=== PATIENT | male | born 1980 | race Two or more races ===

== ENCOUNTER 2024-07-21 12:30 | Emergency (ER) | payer OTHER, MEDICAID ==
[~2024-07-21] VITALS: Ht 167.6 cm; Wt 73.4 kg
--- NOTE | 2024-07-21 12:36 | ECG ---
[facility] Test Date: 2024-07-21 Test Time: 12:34:36 Pat Name: GASPER PEÑA Department: ER Room: Gender: M Car Body Mechanic: GP : 1980 Requested By: ANNE SALCIDO Order Number: [id number] Reading MD: Matt Boyce Measurements Intervals [place] Rate: 85 P: 39 PA: 140 QRS: 132 QRSD: 108 T: 24 QT: 361 QTc: 430 Interpretive Statements Sinus rhythm Left posterior fascicular block Baseline wander in lead(s) II,III,aVL,aVF Electronically Signed On 07-22-2024 14:58:50 PDT by Matt Boyce Please click the below link to view image of tracing.
--- NOTE | 2024-07-21 12:41 | ED.PDOC ---
History of Present Illness HPI Comments 43 year old male presents to the ED with a chief complaint of anxiety onset today (07/21/24) about 1 hour ago. Patient states he was on a phone call, was very upset, shortly after began experiencing anxiety, felt his heart racing. PMHx anxiety. Denies nausea, vomiting, diarrhea, abdominal pain, chest pain,he adache, dizziness, fevers. No other symptoms or modifying factors present at this time. Time Seen by MD: 12:36 Reviewed Notes: Medications, Allergies Allergies: Coded Allergies: NO KNOWN ALLERGIES (Unverified , 07/21/24) Information Source: Patient Mode of Arrival: Ambulatory Severity: Moderate Timing: Hours Duration: Since onset Prehospital treatment: None Past Medical History PAST MEDICAL HISTORY: Anxiety Surgical History: Denies all surgeries Family History Family History: Reviewed,noncontributory to illness, No family hx of Cancer, No family hx of DM, No family hx of Heart stewart, No family hx of HTN, No family hx ofKidney stewart, No family hx of Liver stewart, No family hx of Lung stewart, No family hx of Stroke Social History Smoker: Non-Smoker Alcohol: Denies ETOH Use Drugs: Denies Drug Use Lives In: Home Constitutional: denies: chills, diaphoresis, fatigue, fever, malaise, sweats, weakness, others EENTM: denies: blurred vision, double vision, ear bleeding, ear discharge, ear drainage, ear pain, ear ringing, eye pain, eye redness, hearing loss, mouth pain, mouth swelling, nasal discharge, nose bleeding, nose congestion, nose pain, photophobia, tearing, throat pain, throat swelling, voice changes, others Respiratory: denies: cough, hemoptysis, orthopnea, SOB at rest, shortness of breath, SOB with excertion, stridor, wheezing, others Cardiovascular: denies: chest pain, dizzy spells, diaphoresis, Dyspnea on exertion, edema, irregular heart beat, left arm pain, lightheadedness, palpitations, PND, syncope, others Gastrointestinal: denies: abdomen distended, abdominal pain, blood streaked bowels, constipated, diarrhea, dysphagia, difficulty swallowing, hematemesis, melena, nausea, poor appetite, poor fluid intake, rectal bleeding, rectal pain, vomiting, others Genitourinary: denies: burning, dysuria, flank pain, frequency, hematuria, incontinence, penile discharge, penile sore, pain, testicle pain, testicle swelling, urgency, others Neurological: denies: dizziness, fainting, headache, left sided numbness, left sided weakness, numbness, paresthesia, pre-existing deficit, right sided numbness, right sided weakness, seizure, speech problems, tingling, tremors, weakness, others Musculoskeletal: denies: back pain, gout, joint pain, joint swelling, muscle pain, muscle stiffness, neck pain, others Integumetry: denies: bruises, change in color, change in hair/nails, dryness, laceration, lesions, lumps, rash, wounds, others Allergic/Immunocompromised: denies: Difficulty Healing, Frequent Infections, Hives, Itching, others Hematologic/Lymphatic: denies: anemia, blood clots, easy bleeding, easy bruising, swollen glands, others Endocrine: denies: excessive hunger, excessive sweating, excessive thirst, excessive urination, flushing, intolerance to cold, intolerance to heat, unexplained weight gain, unexplained weight loss, others Psychiatric: reports: anxiety; denies: bipolar disorder, depression, hopeless, panic disorder, schizophrenia, sleepless, suicidal, others All Other Systems: Reviewed and Negative Physical Exam General Appearance: Moderate Distress, Normal HEENT: Normal ENT Inspection, Pharynx Normal, TMs Normal Neck: Full Range of Motion, Non-Tender, Normal, Normal Inspection Respiratory: Chest Non-Tender, Lungs Clear, No Accessory Muscle Use, No Respiratory Distress, Normal Breath Sounds Cardiovascular: No Edema, No JVD, No Murmur, No Gallop, Normal Peripheral Pulses, Regular Rate/Rhythm Breast Exam: Deferred Gastrointestinal: No Organomegaly, Non Tender, No Pulsatile Mass, Normal Bowel Sounds, Soft Genitalia: Deferred Pelvic: Deferred Rectal: Deferred Extremities: No calf tenderness, Normal capillary refill, Normal inspection, Normal range of motion, Non-tender, No pedal edema Musculoskeletal : Apperance: Normal Neurologic: Alert, 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 Was a procedure done?: No EKG EKG : Pulse Rate (adult): 77 Cardiac Rhythm: NSR Differential Dx Considerations may include: Anxiety X-Ray, Labs, Meds, VS Vital Signs Date Time Temp Pulse Resp B/P (MAP) Pulse Ox O2 Delivery O2 Flow Rate FiO2 07/21/24 12:34 85 07/21/24 12:32 97.3 98 22 153/78 (103) 97 97.3 Lab Test 07/21/24 13:04 Range/Units Troponin I High Sensitivity Pending Current Medications Medications (Trade) Dose Ordered Sig/Roopa Route Start Time Stop Time Status Last Admin Lorazepam (Ativan Tablet) 2 mg ONCE ONCE PO 07/21/24 12:45 07/21/24 12:46 DC 07/21/24 13:04 Patient alert. Complaining of heart racing. Heart rate within normal limits. Vitals stable. Answering questions. He is anxious. History of anxiety. Was given Ativan. EKG reviewed does not show any acute changes. Explained to the patient. Was told to follow up with his primary care physician. Was told to come back if there is any problem. Time of 1ST Reevaluation: 13:06 Reevaluation 1ST: Unchanged Time of 2ND Reevaluation: 13:38 Reevaluation 2ND: Improved Patient Education/Counseling: Diagnosis, Treatment, Prognosis Family Education/Counseling: No Family Present Departure 1 Departure Time of Disposition: 13:39 Impression: Primary Impression: Anxiety Disposition: 01 HOME / SELF CARE / HOMELESS Condition: Good Discharged With: Self Critical Care Note Critical Care Time?: No Stability Stability form required: No Heart Score Heart Score: Heart Score Response (Comments) Value History Slightly Suspicious 0 EKG Normal 0 Age <45 0 Risk Factors No known risk factors 0 Troponin Normal limit 0 Total 0 I personally scribed for ANNE SALCIDO MD ([email or web address]) on 07/21/24 at 12:41. Electronically submitted by Irene Medina ([email or web address]). ANNE SALCIDO MD Jul 21, 2024 12:41
[2024-07-21] MEDS: LORazepam 0.5 MG TAB PO ONE (13:04)
[2024-07-21 14:38] VITALS: BP 136/82; PULSE 74; RESP 17; TEMP 98.8; O2SAT 96
== END 2024-07-21 15:15 | disposition home or self-care (01) ==
LOC: ER 12:38
DX: F41.9 Anxiety disorder, unspecified (principal); R00.0 Tachycardia, unspecified
CPT/HCPCS: 36415; 84484; 93005

== ENCOUNTER 2024-10-24 05:19 | Inpatient (IN) | payer OTHER, MEDICAID ==
[~2024-10-24] VITALS: Ht 167.6 cm; Wt 74.5 kg
--- NOTE | 2024-10-24 06:33 | ED.PDOC ---
History of Present Illness HPI Comments 44-year-old male BIBA with prior medical history of anxiety, slightly diagnosed with a renal stones two weeks were given and a chief complaint left flank pain. 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 The left-sided flank pain has been intermittent for two days and has worsened with symptoms of hematuria, urinary frequency, and N/V. Denies chills, fever, /D, SOB, CP. No other associated symptoms, modifiers, recent injuries or sick contacts present at this time. Chief Complaint: Flank Pain Time Seen by MD: 06:15 Primary Care Provider: [place] Reviewed Notes: Nurses Notes, Medications, Allergies Allergies: Coded Allergies: NO KNOWN ALLERGIES (Unverified , 07/21/24) Information Source: Patient Mode of Arrival: EMS Severity: Moderate Duration: Since onset Prehospital treatment: None Past Medical History PAST MEDICAL HISTORY: Anxiety Past Medical History (Other): Recently diagnosed with renal stones Surgical History: Denies all surgeries Family History Family History: Reviewed,noncontributory to illness, Unknown Social History Smoker: Non-Smoker Alcohol: Denies ETOH Use Drugs: Denies Drug Use Lives In: Home Constitutional: denies: chills, diaphoresis, fatigue, fever, malaise, sweats, weakness, others EENTM: denies: blurred vision, double vision, ear bleeding, ear discharge, ear drainage, ear pain, ear ringing, eye pain, eye redness, hearing loss, mouth pain, mouth swelling, nasal discharge, nose bleeding, nose congestion, nose pain, photophobia, tearing, throat pain, throat swelling, voice changes, others Respiratory: denies: cough, hemoptysis, orthopnea, SOB at rest, shortness of breath, SOB with excertion, stridor, wheezing, others Cardiovascular: denies: chest pain, dizzy spells, diaphoresis, Dyspnea on exertion, edema, irregular heart beat, left arm pain, lightheadedness, palpitations, PND, syncope, others Gastrointestinal: reports: nausea, vomiting; denies: abdomen distended, abdominal pain, blood streaked bowels, constipated, diarrhea, dysphagia, difficu lty swallowing, hematemesis, melena, poor appetite, poor fluid intake, rectal bleeding, rectal pain, others Genitourinary: reports: flank pain, frequency, hematuria; denies: burning, dysuria, incontinence, penile discharge, penile sore, pain, testicle pain, testicle swelling, urgency, others Neurological: denies: dizziness, fainting, headache, left sided numbness, left sided weakness, numbness, paresthesia, pre-existing deficit, right sided numbness, right sided weakness, seizure, speech problems, tingling, tremors, weakness, others Musculoskeletal: denies: back pain, gout, joint pain, joint swelling, muscle pain, muscle stiffness, neck pain, others Integumetry: denies: bruises, change in color, change in hair/nails, dryness, laceration, lesions, lumps, rash, wounds, others Allergic/Immunocompromised: denies: Difficulty Healing, Frequent Infections, Hives, Itching, others Hematologic/Lymphatic: denies: anemia, blood clots, easy bleeding, easy bruising, swollen glands, others Endocrine: denies: excessive hunger, excessive sweating, excessive thirst, excessive urination, flushing, intolerance to cold, intolerance to heat, unexplained weight gain, unexplained weight loss, others Psychiatric: denies: anxiety, bipolar disorder, depression, hopeless, panic disorder, schizophrenia, sleepless, suicidal, others All Other Systems: Reviewed and Negative Physical Exam General Appearance: Moderate Distress, Normal HEENT: Normal ENT Inspection, Pharynx Normal, TMs Normal Neck: Full Range of Motion, Non-Tender, Normal, Normal Inspection Respiratory: Chest Non-Tender, Lungs Clear, No Accessory Muscle Use, No Respiratory Distress, Normal Breath Sounds Cardiovascular: No Edema, No JVD, No Murmur, No Gallop, Normal Peripheral Pulses, Regular Rate/Rhythm Breast Exam: Deferred Gastrointestinal: Diffuse, No Organomegaly, No Pulsatile Mass, Normal Bowel Sounds, Soft Genitalia: Deferred Pelvic: Deferred Rectal: Deferred Extremities: No calf tenderness, Normal capillary refill, Normal inspection, Normal range of motion, Non-tender, No pedal edema Musculoskeletal : Apperance: Normal Neurologic: Alert, 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 Was a procedure done?: No Differential Dx Considerations may include: Kidney stone Electrolyte imbalance X-Ray, Labs, Meds, VS Vital Signs Date Time Temp Pulse Resp B/P (MAP) Pulse Ox O2 Delivery O2 Flow Rate FiO2 10/24/24 08:40 98.3 66 18 153/91 (111) 99 98.3 10/24/24 08:40 66 18 99 Room Air 10/24/24 05:19 98.3 100 18 148/76 98 98.3 Current Medications Medications (Trade) Dose Ordered Sig/Roopa Route Start Time Stop Time Status Last Admin Ondansetron HCl (Zofran) 4 mg ONCE ONCE IV 10/24/24 06:45 10/24/24 06:46 DC 10/24/24 08:19 Sodium Chloride 1,000 ml @ 1,000 mls/hr Q1H ONCE IVB 10/24/24 06:45 10/24/24 07:44 DC 10/24/24 08:06 Ketorolac Tromethamine (Toradol Injection) 30 mg ONCE ONCE IV 10/24/24 06:45 10/24/24 06:46 DC 10/24/24 08:19 Ketorolac Tromethamine (Toradol Injection) 15 mg Q6HPRN PRN IV 10/24/24 10:00 10/29/24 09:59 10/24/24 13:03 [place] [address] Ph: [phone] DIAGNOSTIC IMAGING Diagnostic Imaging Report : [id number] Signed PATIENT: GASPER PEÑA ACCT: [id number] UNIT: [id number] : 1980 LOC: ER ROOM / BED: / AGE / SEX: 44 / M ADM STATUS: REG ER SERVICE 0 ORDERING PHYSICIAN: ANNE SALCIDO MD PROCEDURE(s): ABPL - CT AB PEL WO CON-NO ORAL OR IV REASON: stone ORDER NUMBER(s): [id number], ACCESSION NUMBER(s): [id number] CT CT AB PEL WO CON-NO ORAL OR IV INDICATION: stone EXAM DATE: 10/24/2024 06:30 AM COMPARISON: None RADIATION DOSE: CTDIvol: 5 mGy, DLP: 288 mGy*cm PROCEDURE: Helical CT images were obtained of the abdomen and pelvis without IV contrast Sagittal and coronal reconstructions are provided. ORAL CONTRAST: None. ADDITIONAL IMAGES / REFORMATS: None All CT scans at this medical facility are performed using dose modulation techniques as appropriate to a performed exam including the following: Automated exposure control was utilized; adjustment of the MA and/or KV according to patient size; and use of iterative reconstruction technique. FINDINGS: LUNG BASE: Normal. LIVER: Normal. GALLBLADDER AND BILIARY TREE: No calcified gallstones. Normal caliber wall. No intra- or extrahepatic biliary ductal dilation. PANCREAS: Normal. SPLEEN: Normal. BOWEL: Moderate colonic diverticulosis with mild descending colonic diverticulitis. Normal appendix. ADRENALS: Normal. KIDNEYS AND URETER: Mild left hydroureteronephrosis with a 4 mm distal left ureteral kidney stone. BLADDER: Normal. REPRODUCTIVE ORGANS: Normal. LYMPH NODES:No lymphadenopathy. PERITONEUM: No ascites or free air. No other fluid collection. VESSELS: Scattered atherosclerotic calcifications are noted. RETROPERITONEUM: Normal. ABDOMINAL WALL: Normal. BONES: Scattered osseous degenerative changes are noted. IMPRESSION: Mild left hydroureteronephrosis with a 4 mm distal left ureteral kidney stone. Moderate colonic diverticulosis with mild descending colonic diverticulitis. Normal appendix. ATED BY: AREN RODRIGUES MD DICTATED DATE/TIME: 10/24/24705 SIGNED BY: AREN RODRIGUES MD SIGNED DATE/TIME: 10/24/24705 CC: Patient alert. Complaining of flank pain. History of kidney stones. Vitals stable. Answering questions. Ambulating. Establish intravenous access. Was given fluids. Was given Toradol. Was given Zofran. Reviewed his previous visit. Explained to the patient. CT scan of the abdomen reviewed does show a kidney stone. Hydronephrosis. Continues to have pain. Time of 1ST Reevaluation: 06:45 Reevaluation 1ST: Unchanged Patient Education/Counseling: Diagnosis, Treatment, Prognosis Family Education/Counseling: No Family Present SEPSIS Sepsis Screen Date sepsis recognized/suspect: Oct 24, 2024 Time Sepsis recognized/suspect: 518 Recent Procedure: No On Antibiotic Therapy: No Respiratory Rate >20: No Heart Rate >90: No Temp<36 C (96.8 F) or >38.3 C: No SBP <90 or MAP <65 mmHG: No New Acute Mental Status Change: No Is the patient on CPAP, BIPAP,: No Physician Orders Urinalysis (10/24/24 06:31) Ct Ab Pel Wo Con-No Oral Or Iv (10/24/24 06:31) Ketorolac Injection (Toradol Injection) (10/24/24 10:00) Tamsulosin Hydrochloride (Flomax) (10/24/24 18:00) Vital Signs Date Time Temp Pulse Resp B/P (MAP) Pulse Ox O2 Delivery O2 Flow Rate FiO2 10/24/24 08:40 98.3 66 18 153/91 (111) 99 98.3 10/24/24 08:40 66 18 99 Room Air 10/24/24 05:19 98.3 100 18 148/76 98 98.3 Medications Medications Dose Ordered Sig/Roopa Route Start Time Stop Time Status Last Admin Dose Admin Ketorolac Tromethamine 15 mg Q6HPRN PRN IV 10/24/24 10:00 10/29/24 09:59 10/24/24 13:03 Ketorolac Tromethamine 30 mg ONCE ONCE IV 10/24/24 06:45 10/24/24 06:46 DC 10/24/24 08:19 Ondansetron HCl 4 mg ONCE ONCE IV 10/24/24 06:45 10/24/24 06:46 DC 10/24/24 08:19 Sodium Chloride 1,000 ml @ 1,000 mls/hr Q1H ONCE IVB 10/24/24 06:45 10/24/24 07:44 DC 10/24/24 08:06 Departure 1 Departure Time of Disposition: 06:40 Impression: Primary Impression: Hydronephrosis Qualified Codes: N13.2 - Hydronephrosis with renal and ureteral calculous obstruction Additional Impression: Kidney stone Disposition: ADMITTED INPATIENT Admit to: Med Surg Condition: Guarded Critical Care Note Critical Care Time?: No Stability Stability form required: No Heart Score Heart Score: Heart Score Response (Comments) Value History N/A 0 EKG N/A 0 Age N/A 0 Risk Factors N/A 0 Troponin N/A 0 Total 0 I personally scribed for ANNE SALCIDO MD ([email or web address]) on 10/24/24 at 06:33. Electronically submitted by Conner Zambrano ([email or web address]). I personally scribed for ANNE SALCIDO MD ([email or web address]) on 10/24/24 at 14:08. Electronically submitted by Ronen Andre ([email or web address]). ANNE SALCIDO MD Oct 24, 2024 06:33
--- NOTE | 2024-10-24 07:08 | DVH ---
CT CT AB PEL WO CON-NO ORAL OR IV INDICATION: stone EXAM DATE: 10/24/2024 06:30 AM COMPARISON: None RADIATION DOSE: CTDIvol: 5 mGy, DLP: 288 mGy*cm PROCEDURE: Helical CT images were obtained of the abdomen and pelvis without IV contrast Sagittal and coronal reconstructions are provided. ORAL CONTRAST: None. ADDITIONAL IMAGES / REFORMATS: None All C T scans at this medical facility are performed using dose modulation techniques as appropriate to a p erformed exam including the following: Automated exposure control was utilized; adjustment of the MA and/or KV according to patient size; and use of iterative reconstruction technique. FINDINGS: LUNG BASE: Normal. LIVER: Normal. GALLBLADDER AND BILIARY TREE: No calcified gallstones. Normal caliber wall. No intra- or extrahepatic biliary ductal dilation. PANCREAS: Normal. SPLEEN: Normal. BOWEL: Moderate colonic diverticulosis with mild descending colonic diverticulitis. Normal appendix. ADRENALS: Normal. KIDNEYS AND URETER: Mild left hydroureteronephrosis with a 4 mm distal left ureteral kidney stone. BLADDER: Normal. REPRODUCTIVE ORGANS: Normal. LYMPH NODES:No lymphadenopathy. PERITONEUM: No ascites or free air. No other fluid collection. VESSELS: Scattered atherosclerotic calcifications are noted. RETROPERITONEUM: Normal. ABDOMINAL WALL: Normal. BONES: Scattered osseous degenerative changes are noted. IMPRESSION: Mild left hydroureteronephrosis with a 4 mm distal left ureteral kidney stone. Moderate colonic diverticulosis with mild descending colonic diverticulitis. Normal appendix.
[2024-10-24] MEDS: SODIUM CHLORIDE 0.9% 1,000 ML IVB ONE (08:06)
[2024-10-24] MEDS: ONDANSETRON HCL 4 MG/2 ML VIAL IV ONE (08:19)
[2024-10-24] MEDS: KETOROLAC TROMETH 30 MG/ML 1ML VIAL IV ONE (08:19)
[2024-10-24] MEDS ORDERED: TAMSULOSIN HYDROCHLORIDE 0.4 MG CAP PO ONE (10:00)
[2024-10-24] MEDS ORDERED: HYDROcodone-ACET 5/325MG TAB PO PRN (10:15)
[2024-10-24] MEDS ORDERED: ACETAMINOPHEN 325 MG TAB PO PRN (10:15)
[2024-10-24 10:31] VITALS: PULSE 63; RESP 18; O2SAT 98
[2024-10-24 10:37] LABS: Hematocrit 43.3 % (41.0-53.0); Hemoglobin 15.0 g/dL (13.5-17.5); Mean Corpuscular Hemoglobin 31.9 pg (28.0-32.0); Mean Corpuscular Volume 92.0 fL (80.0-100.0); Nucleated Red Blood Cells % 0.0 %
[2024-10-24 10:48] LABS: Potassium 4.3 mmol/L (3.5-5.1); Sodium 144 mmol/L (136-145)
[2024-10-24 10:49] LABS: Anion Gap 11 (5-15); Calcium 9.3 mg/dL (8.7-10.4); Carbon Dioxide 25 mmol/L (20-31)
[2024-10-24 10:50] LABS: Chloride 108 mmol/L (98-107)
[2024-10-24 10:54] LABS: BUN/Creatinine Ratio 11.7 (10.0-20.0); Blood Urea Nitrogen 14 mg/dL (9-23); Glucose 97 mg/dL (74-106)
--- NOTE | 2024-10-24 11:52 | DVHHP2 ---
History of Present Illness Reason for Visit: Left flank pain due to left hydroureteral nephrosis History of Present Illness This is a 44-year-old male with history of anxiety brought in by ambulance with complaint of left flank pain associated with urinary frequency, hematuria, nausea and vomiting x2 days that progressively got worse today. Upon evaluation patient felt much relief after Toradol was given in the ED. he denies having experienced these pain in the past and due to this would like to be further evaluated and treated. The patient will be admitted under hospitalist care to the medical-surgical unit. The patient denies fever, chills, headache, dizziness, palpitation, chest pain, nausea, vomiting, diarrhea, constipation and other associated symptoms. The plan has been discussed with the patient in which all questions concerns have been addressed Psych: Anxiety Past Surgical History: None Family History: None Smoke: No ALCOHOL: none Drugs: None Lives: with Family Domestic Violence: Neg Review of Systems Gastrointestinal: Nausea, Vomiting, Abdominal Pain Genitourinary: Frequency, Other (Left flank pain) Allergies: Coded Allergies: NO KNOWN ALLERGIES (Unverified , 07/21/24) Medications Current Medications Medications Dose Ordered Sig/Roopa Route Start Time Stop Time Status Last Admin Dose Admin Ketorolac Tromethamine 15 mg Q6HPRN PRN IV 10/24/24 10:00 10/29/24 09:59 Tamsulosin HCl 0.4 mg QPM PO 10/24/24 18:00 Sodium Chloride 1,000 ml @ 120 mls/hr Q8H20M IV 10/24/24 10:15 Acetaminophen/ Hydrocodone Bitart 1 tab Q4HP PRN PO 10/24/24 10:15 Hold Ondansetron HCl 4 mg Q4HP PRN IV 10/24/24 10:15 Acetaminophen 650 mg Q6HP PRN PO 10/24/24 10:15 Exam Vital Signs Vital Signs Date Time Temp Pulse Resp B/P (MAP) Pulse Ox O2 Delivery O2 Flow Rate FiO2 10/24/24 10:38 97 Room Air* 0 21 10/24/24 10:31 63 18 10/24/24 10:26 98.2 136/86 (103) 98.2 General Appearance: Alert, Oriented X3, Cooperative, No acute distress HEENT: Atraumatic, PERRLA, Mucous membr. moist/pink Respiratory: Clear to auscultation, Normal air movement Cardiovascular: Regular rate, Normal S1, Normal S2, No murmurs Abdominal: Normal bowel sounds, Soft, No hepatospenomegaly, No masses Extremities: No clubbing, No cyanosis, No edema, Normal pulses, No tenderness/swelling Skin: No rashes, No breakdown Neuro: Normal gait, Normal speech, Strength at 5/5 X4 ext, Normal tone, Sensation intact, Cranial nerves 3-12 NL Psych/Mental Status: Mental status NL, Mood NL Labs/Xrays Labs Test 10/24/24 10:16 Range/Units White Blood Count 14.0 H 4.4-10.8 10^3/uL Red Blood Count 4.71 4.5-5.90 10^6/uL Hemoglobin 15.0 13.5-17.5 g/dL Hematocrit 43.3 41.0-53.0 % Mean Corpuscular Volume 92.0 80.0-100.0 fL Mean Corpuscular Hemoglobin 31.9 28.0-32.0 pg Mean Corpuscular Hemoglobin Concent 34.7 32.0-36.0 g/dL Red Cell Distribution Width 13.7 11.8-14.3 % Platelet Count 192 140-450 10^3/uL Mean Platelet Volume 8.4 6.9-10.8 fL Neutrophils (%) (Auto) 92.0 H 37.0-80.0 % Lymphocytes (%) (Auto) 5.1 L 10.0-50.0 % Monocytes (%) (Auto) 2.8 0.0-12.0 % Eosinophils (%) (Auto) 0.0 0.0-7.0 % Basophils (%) (Auto) 0.1 0.0-2.0 % Neutrophils # (Auto) 12.9 H 1.6-8.6 10 ^3/uL Lymphocytes # (Auto) 0.7 0.4-5.4 10 ^3/uL Monocytes # (Auto) 0.4 0-1.3 10 ^3/uL Eosinophils # (Auto) 0 0-0.8 10 ^3/uL Basophils # (Auto) 0 0-0.2 10 ^3/uL Nucleated Red Blood Cells 0.0 % Sodium Level 144 136-145 mmol/L Potassium Level 4.3 3.5-5.1 mmol/L Chloride Level 108 H 98-107 mmol/L Carbon Dioxide Level 25 20-31 mmol/L Anion Gap 11 5-15 Blood Urea Nitrogen 14 9-23 mg/dL Creatinine 1.20 0.700-1.30 mg/dL Glomerular Filtration Rate Calc 77 >90 mL/min BUN/Creatinine Ratio 11.7 10.0-20.0 Serum Glucose 97 74-106 mg/dL Calcium Level 9.3 8.7-10.4 mg/dL ORDERING PHYSICIAN: ANNE SALCIDO MD PROCEDURE(s): ABPL - CT AB PEL WO CON-NO ORAL OR IV REASON: stone ORDER NUMBER(s): [id number], ACCESSION NUMBER(s): [id number] CT CT AB PEL WO CON-NO ORAL OR IV INDICATION: stone EXAM DATE: 10/24/2024 06:30 AM COMPARISON: None RADIATION DOSE: CTDIvol: 5 mGy, DLP: 288 mGy*cm PROCEDURE: Helical CT images were obtained of the abdomen and pelvis without IV contrast Sagittal and coronal reconstructions are provided. ORAL CONTRAST: None. ADDITIONAL IMAGES / REFORMATS: None All CT scans at this medical facility are performed using dose modulation techniques as appropriate to a performed exam including the following: Automated exposure control was utilized; adjustment of the MA and/or KV according to patient size; and use of iterative reconstruction technique. FINDINGS: LUNG BASE: Normal. LIVER: Normal. GALLBLADDER AND BILIARY TREE: No calcified gallstones. Normal caliber wall. No intra- or extrahepatic biliary ductal dilation. PANCREAS: Normal. SPLEEN: Normal. BOWEL: Moderate colonic diverticulosis with mild descending colonic diverticulitis. Normal appendix. ADRENALS: Normal. KIDNEYS AND URETER: Mild left hydroureteronephrosis with a 4 mm distal left ureteral kidney stone. BLADDER: Normal. REPRODUCTIVE ORGANS: Normal. LYMPH NODES:No lymphadenopathy. PERITONEUM: No ascites or free air. No other fluid collection. VESSELS: Scattered atherosclerotic calcifications are noted. RETROPERITONEUM: Normal. ABDOMINAL WALL: Normal. BONES: Scattered osseous degenerative changes are noted. IMPRESSION: Mild left hydroureteronephrosis with a 4 mm distal left ureteral kidney stone. Moderate colonic diverticulosis with mild descending colonic diverticulitis. Normal appendix. ATED BY: AREN MIGUEL MD DICTATED DATE/TIME: 10/24/24705 SIGNED BY: AREN MIGUEL MD SIGNED DATE/TIME: 10/24/24705 CC: SEPSIS Sepsis Screen Date sepsis recognized/suspect: Oct 24, 2024 Time Sepsis recognized/suspect: 1037 Recent Procedure: No On Antibiotic Therapy: No Respiratory Rate >20: No Heart Rate >90: No Temp<36 C (96.8 F) or >38.3 C: No SBP <90 or MAP <65 mmHG: No New Acute Mental Status Change: No Is the patient on CPAP, BIPAP,: No Physician Orders Urinalysis (10/24/24 06:31) Ct Ab Pel Wo Con-No Oral Or Iv (10/24/24 06:31) Ketorolac Injection (Toradol Injection) (10/24/24 10:00) Tamsulosin Hydrochloride (Flomax) (10/24/24 18:00) Admit (10/24/24 10:09) 2 Gm Sodium Diet (10/24/24 Lunch) Sodium Chloride 0.9% (10/24/24 10:15) Hydrocodone-Acet 5/325mg Tab ([place] Path 5/32 (10/24/24 10:15) Ondansetron Hcl (Zofran) (10/24/24 10:15) Comprehensive Metabolic Panel (10/25/24 04:00) Condition: Fair (10/24/24 10:09) Acetaminophen Tablet (Tylenol Tablet) (10/24/24 10:15) BRP (10/24/24 10:09) Vital Signs Date Time Temp Pulse Resp B/P (MAP) Pulse Ox O2 Delivery O2 Flow Rate FiO2 10/24/24 10:38 97 Room Air* 0 21 10/24/24 10:31 63 18 98 Room Air* 0 21 10/24/24 10:26 98.2 63 18 136/86 (103) 99 98.2 10/24/24 08:40 98.3 66 18 153/91 (111) 99 98.3 10/24/24 08:40 66 18 99 Room Air 10/24/24 05:19 98.3 100 18 148/76 98 98.3 Laboratory Tests Test 10/24/24 10:16 White Blood Count 14.0 10^3/uL (4.4-10.8) H Medications Medications Dose Ordered Sig/Roopa Route Start Time Stop Time Status Last Admin Dose Admin Ketorolac Tromethamine 30 mg ONCE ONCE IV 10/24/24 06:45 10/24/24 06:46 DC 10/24/24 08:19 30 MG Ondansetron HCl 4 mg ONCE ONCE IV 10/24/24 06:45 10/24/24 06:46 DC 10/24/24 08:19 4 MG Sodium Chloride 1,000 ml @ 1,000 mls/hr Q1H ONCE IVB 10/24/24 06:45 10/24/24 07:44 DC 10/24/24 08:06 1,000 MLS/HR Assessment/Plan Assessment/Plan Left flank pain due to left hydroureteral nephrosis--patient with complaint of left flank pain associated with hematuria, urinary frequency, nausea and vomiting x2 days Patient denies pain upon evaluation status post Toradol was given in [facility] No prior history of kidney stone Admit to medical-surgical unit Ordered and reviewed CBC which shows leukocytosis Ordered BMP and reviewed which is normal Reviewed urinalysis which is normal Reviewed CT abdomen/pelvis shows left hydroureteronephrosis with 4 mm left ureteral stone/colonic diverticulitis IV Toradol IV hydration IV Zofran as needed Start Flomax 0.4 now and daily Consider to consult urologist if further evaluation and recommendation are needed Leukocytosis Reviewed CBC which shows elevated white blood cell count Start IV antibiotic ceftriaxone Reconcile home meds DVT prophylaxis not indicated patient ambulatory PUD prophylaxis not indicated no history of GERD Labs in a.m. Discussed plan of care with the patient in which all questions concerns have been addressed Plan discussed with: Patient My Orders Orders - CORINNA PENNINGTON HEEL ATTACHER Procedure Category Date Status Time Ketorolac Injection PHA 10/24/24 In Process (Toradol Injection) 10:00 Tamsulosin PHA 10/24/24 In Process Hydrochloride (Flomax) 18:00 Admit ADMIT 10/24/24 Transmitted 10:09 2 Gm Sodium Diet DIET 10/24/24 Transmitted Lunch Sodium Chloride 0.9% PHA 10/24/24 In Process 10:15 Hydrocodone-Acet PHA 10/24/24 In Process 5/325mg Tab ([place] Path 10:15 Ondansetron Hcl PHA 10/24/24 In Process (Zofran) 10:15 Comprehensive LAB 10/25/24 Verified Metabolic Panel 04:00 Condition: Fair DRAKE 10/24/24 In Process 10:09 Acetaminophen Tablet PHA 10/24/24 In Process (Tylenol Tablet) 10:15 BRP DRAKE 10/24/24 In Process 10:09 Date of Service: Oct 24, 2024 Billing Provider: CORINNA PENNINGTON Common Visit Codes: [id number] INP/OBS CARE (HIGH) CORINNA PENNINGTON Oct 24, 2024 11:52
[2024-10-24] MEDS: SODIUM CHLORIDE 0.9% 1,000 ML IV SCH (12:24)
[2024-10-24] MEDS: ONDANSETRON HCL 4 MG/2 ML VIAL IV PRN (13:03)
[2024-10-24] MEDS: KETOROLAC TROMETH 30 MG/ML 1ML VIAL IV PRN (13:03)
[2024-10-24 14:33] LABS: Urine Protein, UAD Negative (Negative)
[2024-10-24] MEDS: TAMSULOSIN HYDROCHLORIDE 0.4 MG CAP PO SCH (18:00)
[2024-10-24 18:24] VITALS: BP 149/90; PULSE 63; RESP 18; TEMP 98.2; O2SAT 99
[2024-10-24 18:34] VITALS: PULSE 96; RESP 18; O2SAT 96
[2024-10-24] MEDS ORDERED: ESCI5TAB PO (18:35)
[2024-10-24 20:00] VITALS: PULSE 70; RESP 18; O2SAT 95
[2024-10-24 21:00] VITALS: BP 138/94; PULSE 70; RESP 18; TEMP 97.9; O2SAT 95
[2024-10-25] VITALS (7 sets, daily range): BP systolic 102–154; BP diastolic 53–97; PULSE 52–71; RESP 16–19; TEMP 97.5–98.2; O2SAT 97–99
[2024-10-25 08:03] LABS: Alanine Aminotransferase 13 U/L (7-40); Alkaline Phosphatase 60 U/L (46-116); Anion Gap 9 (5-15); BUN/Creatinine Ratio 11.2 (10.0-20.0); Blood Urea Nitrogen 11 mg/dL (9-23); Carbon Dioxide 26 mmol/L (20-31); Glucose 85 mg/dL (74-106); Potassium 3.9 mmol/L (3.5-5.1); Total Protein 6.4 g/dL (5.7-8.2)
[2024-10-25 08:04] LABS: Albumin 3.8 g/dL (3.2-4.8)
[2024-10-25 08:05] LABS: Bilirubin, Total 1.0 mg/dL (0.2-1.0)
[2024-10-25 08:09] LABS: Calcium 8.5 mg/dL (8.7-10.4); Chloride 111 mmol/L (98-107); Sodium 146 mmol/L (136-145)
--- NOTE | 2024-10-25 08:49 | DVHPN2 ---
Subjective Feeling much better; passed the stone Reviewed: Care Plan, H&P, Labs, Medications, Previous Orders, Radiology Changes from previous H/P or p: Changes Objective Vitals Vital Signs Date Time Temp Pulse Resp B/P (MAP) Pulse Ox O2 Delivery O2 Flow Rate FiO2 10/25/24 05:00 98.1 55 17 132/82 (99) 99 98.1 10/24/24 20:00 Room Air* 0 21 Intake/Output Intake and Output 10/25/24 07:00 Intake Total 2350 ml Output Total 300 ml Balance 2050 ml Intake Oral 840 ml IV Total 1510 ml Output Urine Total 300 ml # Voids 3 General Appearance: Alert, Oriented X3, Cooperative, No acute distress HEENT: Atraumatic Lungs: Clear to auscultation, Normal air movement Cardiovascular: Regular rate, Normal S1, Normal S2, No murmurs Abdomen: Normal bowel sounds, Soft, No tenderness, No hepatospenomegaly Back: Other (No CVA tenderness) Neuro: Normal speech, Cranial nerves 3-12 NL Psych/Mental Status: Mental status NL, Mood NL Medications Current Medications Medications Dose Ordered Sig/Roopa Route Start Time Stop Time Status Last Admin Dose Admin Ketorolac Tromethamine 15 mg Q6HPRN PRN IV 10/24/24 10:00 10/29/24 09:59 10/25/24 03:50 15 MG Tamsulosin HCl 0.4 mg QPM PO 10/24/24 18:00 Sodium Chloride 1,000 ml @ 120 mls/hr Q8H20M IV 10/24/24 10:15 10/25/24 02:25 120 MLS/HR Acetaminophen/ Hydrocodone Bitart 1 tab Q4HP PRN PO 10/24/24 10:15 Hold Ondansetron HCl 4 mg Q4HP PRN IV 10/24/24 10:15 10/24/24 13:03 4 MG Acetaminophen 650 mg Q6HP PRN PO 10/24/24 10:15 Ceftriaxone Sodium 50 ml @ 100 mls/hr DAILY@09 IV 10/25/24 09:00 Laboratory Results Laboratory Tests 10/24/24 10:16 10/25/24 06:10 Chemistry Test 10/24/24 10:16 10/25/24 06:10 Calcium Level 9.3 mg/dL (8.7-10.4) 8.5 mg/dL (8.7-10.4) L Albumin 3.8 g/dL (3.2-4.8) Total Protein 6.4 g/dL (5.7-8.2) LFT Test 10/25/24 06:10 Alanine Aminotransferase (ALT) 13 U/L (7-40) Alkaline Phosphatase 60 U/L (46-116) Aspartate Amino Transferase (AST) 19 U/L (13-40) Total Bilirubin 1.0 mg/dL (0.2-1.0) Urinalysis Test 10/24/24 10:30 Urine Color Light-yellow (Yellow) Urine Clarity Clear (Clear) Urine pH 5.5 (5.0-9.0) Urine Specific [place] 1.025 (1.001-1.035) Urine Protein Negative (Negative) Urine Ketones Negative (Negative) Urine Blood 3+ /uL (Negative) H Urine Nitrite Negative (Negative) Urine Bilirubin Negative (Negative) Urine Urobilinogen Normal mg/dL (Negative) Urine Leukocyte Esterase Negative /uL (Negative) Urine RBC 66 /hpf (0 - 3) Urine Microscopic WBC 2 /HPF (0-3) Urine Squamous Epithelial Cells Few /hpf (<5) Urine Bacteria None seen /hpf (None Seen) Urine Glucose Normal mg/dL (Normal) Labs and/or images reviewed: Labs reviewed by me, Image(s) reviewed by me Assessment/Plan Assessment/Plan A 44-year-old male patient; with recurrent renal stones; who presented to the emergency department with left flank pain. Sepsis with leukocytosis due to complicated UTI and mild diverticulitis Complicated UTI in the setting of obstructive uropathy Mild diverticulitis; asymptomatic MICHAEL in the setting of sepsis and obstructive uropathy; likely vasomotor nephropathy Obstructive uropathy with mild left hydroureteronephrosis with a 4 mm distal left ureteral kidney stone; stone passed Left flank pain due to above Overweight Continue IV fluids Avoid nephrotoxic agents To sent renal stone for analysis Urology consulted by the patient explained that he will follow up with the Urology at [facility] upon discharge Counseled the patient on the importance of adopting healthy lifestyle with diet and exercise in order to lose weight Continue pain management as indicated Continue IV antibiotics Continue monitoring Goals of care discussed with the patient for 20 minutes; full code Late Entry. This medical document was created using an electronic medical record system with computerized dictation system. Although this document has been carefully reviewed, there might still be some phonetic and typographical errors. These areas are purely typographical due to imperfections of the software programs, and do not reflect any compromise in the patient's medical care. Plan discussed with: Patient, Other Date of Service: Oct 25, 2024 Billing Provider: WENDY BELLE MD Common Visit Codes: [id number] INP/OBS CARE(HIGH) Secondary Visit Codes: [id number] CARE PLAN 30 MINUTES (20 minutes) WENDY BELLE MD Oct 25, 2024 08:48
[2024-10-25] MEDS: DOCUSATE SOD 100 MG CAP PO PRN (21:10)
[2024-10-26 01:00] VITALS: BP 145/92; PULSE 60; RESP 18; TEMP 98.3; O2SAT 99
[2024-10-26 05:00] VITALS: BP 144/92; PULSE 66; RESP 16; TEMP 98.1; O2SAT 100
[2024-10-26 07:10] LABS: Potassium 3.9 mmol/L (3.5-5.1); Sodium 144 mmol/L (136-145)
[2024-10-26 07:11] LABS: Anion Gap 9 (5-15); Carbon Dioxide 27 mmol/L (20-31)
[2024-10-26 07:12] LABS: Calcium 9.2 mg/dL (8.7-10.4)
[2024-10-26 07:13] LABS: Chloride 108 mmol/L (98-107)
[2024-10-26 07:16] LABS: Glucose 82 mg/dL (74-106); Hematocrit 39.0 % (41.0-53.0); Hemoglobin 14.2 g/dL (13.5-17.5); Mean Corpuscular Hemoglobin 33.2 pg (28.0-32.0); Mean Corpuscular Volume 91.4 fL (80.0-100.0); Nucleated Red Blood Cells % 0.1 %
[2024-10-26 07:17] LABS: BUN/Creatinine Ratio 6.5 (10.0-20.0); Blood Urea Nitrogen 6 mg/dL (9-23)
[2024-10-26 08:00] VITALS: PULSE 64; RESP 18; O2SAT 100
[2024-10-26 09:16] VITALS: BP 153/97; PULSE 64; RESP 18; TEMP 97.8; O2SAT 100
[2024-10-26 13:00] VITALS: BP 146/90; PULSE 61; RESP 16; TEMP 97.8; O2SAT 98
--- NOTE | 2024-10-26 13:31 | DVHPN2 ---
Subjective Feeling great; no complaint Reviewed: Care Plan, H&P, Labs, Medications, Previous Orders, Radiology Changes from previous H/P or p: No Changes Objective Vitals Vital Signs Date Time Temp Pulse Resp B/P (MAP) Pulse Ox O2 Delivery O2 Flow Rate FiO2 10/26/24 09:16 97.8 64 18 153/97 (115) 100 97.8 10/26/24 08:00 Room Air* 0 21 Intake/Output Intake and Output 10/26/24 07:00 Intake Total 2100 ml Balance 2100 ml Intake Oral 2050 ml IV Total 50 ml # Voids 25 # Bowel Movements 1 General Appearance: Alert, Oriented X3, Cooperative, No acute distress HEENT: Atraumatic Lungs: Clear to auscultation, Normal air movement Cardiovascular: Regular rate, Normal S1, Normal S2, No murmurs Abdomen: Normal bowel sounds, Soft, No tenderness, No hepatospenomegaly Back: Other (No CVA tenderness) Neuro: Normal speech, Cranial nerves 3-12 NL Psych/Mental Status: Mental status NL, Mood NL Medications Current Medications Medications Dose Ordered Sig/Roopa Route Start Time Stop Time Status Last Admin Dose Admin Ketorolac Tromethamine 15 mg Q6HPRN PRN IV 10/24/24 10:00 10/29/24 09:59 10/25/24 21:11 15 MG Tamsulosin HCl 0.4 mg QPM PO 10/24/24 18:00 10/25/24 18:00 0.4 MG Sodium Chloride 1,000 ml @ 120 mls/hr Q8H20M IV 10/24/24 10:15 10/25/24 18:49 120 MLS/HR Acetaminophen/ Hydrocodone Bitart 1 tab Q4HP PRN PO 10/24/24 10:15 Hold Ondansetron HCl 4 mg Q4HP PRN IV 10/24/24 10:15 10/24/24 13:03 4 MG Acetaminophen 650 mg Q6HP PRN PO 10/24/24 10:15 Ceftriaxone Sodium 50 ml @ 100 mls/hr DAILY@09 IV 10/25/24 09:00 10/26/24 09:15 100 MLS/HR Docusate Sodium 100 mg BIDPRN PRN PO 10/25/24 21:00 10/26/24 10:10 100 MG Laboratory Results Laboratory Tests 10/26/24 06:35 Chemistry Test 10/26/24 06:35 Calcium Level 9.2 mg/dL (8.7-10.4) Urinalysis Test 10/24/24 10:30 Urine Color Light-yellow (Yellow) Urine Clarity Clear (Clear) Urine pH 5.5 (5.0-9.0) Urine Specific [place] 1.025 (1.001-1.035) Urine Protein Negative (Negative) Urine Ketones Negative (Negative) Urine Blood 3+ /uL (Negative) H Urine Nitrite Negative (Negative) Urine Bilirubin Negative (Negative) Urine Urobilinogen Normal mg/dL (Negative) Urine Leukocyte Esterase Negative /uL (Negative) Urine RBC 66 /hpf (0 - 3) Urine Microscopic WBC 2 /HPF (0-3) Urine Squamous Epithelial Cells Few /hpf (<5) Urine Bacteria None seen /hpf (None Seen) Urine Glucose Normal mg/dL (Normal) Labs and/or images reviewed: Labs reviewed by me, Image(s) reviewed by me Assessment/Plan Assessment/Plan A 44-year-old male patient; with recurrent renal stones; who presented to the emergency department with left flank pain. Sepsis with leukocytosis due to complicated UTI and mild diverticulitis Complicated UTI in the setting of obstructive uropathy Mild diverticulitis; asymptomatic MICHAEL in the setting of sepsis and obstructive uropathy; likely vasomotor nephropathy Obstructive uropathy with mild left hydroureteronephrosis with a 4 mm distal left ureteral kidney stone; stone passed Left flank pain due to above; resolved Anxiety/Depression; no suicide ideation/plan Overweight Received IV fluid To continue avoiding nephrotoxic agent upon discharge Renal stone sent for analysis To follow up with the Urology at the [facility] Counseled the patient on the importance of adopting healthy lifestyle with diet and exercise in order to lose weight No pain medications indicated for discharge Received three days of IV antibiotics; no oral antibiotics upon discharge To resume home antidepressant upon discharge Prescribed tamsulosin upon discharge To follow up with primary care provider at the [facility] within one week; otherwise to follow up with discharge clinic within one week Late Entry. This medical document was created using an electronic medical record system with computerized dictation system. Although this document has been carefully reviewed, there might still be some phonetic and typographical errors. These areas are purely typographical due to imperfections of the software programs, and do not reflect any compromise in the patient's medical care. Plan discussed with: Patient, Other (Nurse) My Orders Orders - WENDY BELLE MD Procedure Category Date Status Time Stone Analysis Urinary LAB 10/26/24 Logged 12:58 Date of Service: Oct 26, 2024 Billing Provider: WENDY BELLE MD Common Visit Codes: [id number] INP/OBS CARE(MOD) WENDY BELLE MD Oct 26, 2024 13:31
[2024-10-26] MEDS ORDERED: TAMS-35 PO (13:32)
--- NOTE | 2024-10-26 13:37 | DVHDS2 ---
Discharge Summary Date of Admission Oct 24, 2024 at 10:09 Date of Discharge: Oct 26, 2024 Admitting Diagnosis Left flank pain Labs/Diagnostic Data: Laboratory Results Test 10/26/24 06:35 10/25/24 06:10 10/24/24 10:30 White Blood Count 5.7 10^3/uL (4.4-10.8) Red Blood Count 4.26 10^6/uL (4.5-5.90) Hemoglobin 14.2 g/dL (13.5-17.5) Hematocrit 39.0 % (41.0-53.0) Mean Corpuscular Volume 91.4 fL (80.0-100.0) Mean Corpuscular Hemoglobin 33.2 pg (28.0-32.0) Mean Corpuscular Hemoglobin Concent 36.3 g/dL (32.0-36.0) Red Cell Distribution Width 13.8 % (11.8-14.3) Platelet Count 175 10^3/uL (140-450) Mean Platelet Volume 8.6 fL (6.9-10.8) Neutrophils (%) (Auto) 60.1 % (37.0-80.0) Lymphocytes (%) (Auto) 34.5 % (10.0-50.0) Monocytes (%) (Auto) 4.5 % (0.0-12.0) Eosinophils (%) (Auto) 0.5 % (0.0-7.0) Basophils (%) (Auto) 0.4 % (0.0-2.0) Neutrophils # (Auto) 3.4 10 ^3/uL (1.6-8.6) Lymphocytes # (Auto) 2.0 10 ^3/uL (0.4-5.4) Monocytes # (Auto) 0.3 10 ^3/uL (0-1.3) Eosinophils # (Auto) 0 10 ^3/uL (0-0.8) Basophils # (Auto) 0 10 ^3/uL (0-0.2) Nucleated Red Blood Cells 0.1 % Sodium Level 144 mmol/L (136-145) Potassium Level 3.9 mmol/L (3.5-5.1) Chloride Level 108 mmol/L (98-107) Carbon Dioxide Level 27 mmol/L (20-31) Anion Gap 9 (5-15) Blood Urea Nitrogen 6 mg/dL (9-23) Creatinine 0.92 mg/dL (0.700-1.30) Glomerular Filtration Rate Calc 107 mL/min (>90) BUN/Creatinine Ratio 6.5 (10.0-20.0) Serum Glucose 82 mg/dL (74-106) Calcium Level 9.2 mg/dL (8.7-10.4) Total Bilirubin 1.0 mg/dL (0.2-1.0) Aspartate Amino Transferase (AST) 19 U/L (13-40) Alanine Aminotransferase (ALT) 13 U/L (7-40) Alkaline Phosphatase 60 U/L (46-116) Total Protein 6.4 g/dL (5.7-8.2) Albumin 3.8 g/dL (3.2-4.8) Urine Color Light-yellow (Yellow) Urine Clarity Clear (Clear) Urine pH 5.5 (5.0-9.0) Urine Specific [place] 1.025 (1.001-1.035) Urine Protein Negative (Negative) Urine Ketones Negative (Negative) Urine Blood 3+ /uL (Negative) Urine Nitrite Negative (Negative) Urine Bilirubin Negative (Negative) Urine Urobilinogen Normal mg/dL (Negative) Urine Leukocyte Esterase Negative /uL (Negative) Urine RBC 66 /hpf (0 - 3) Urine Microscopic WBC 2 /HPF (0-3) Urine Squamous Epithelial Cells Few /hpf (<5) Urine Bacteria None seen /hpf (None Seen) Urine Glucose Normal mg/dL (Normal) Other Laboratory Tests 10/26/24 06:35 Brief Hx & Hospital Course: A 44-year-old male patient; with recurrent renal stones; who presented to the emergency department with left flank pain. Sepsis with leukocytosis due to complicated UTI and mild diverticulitis Complicated UTI in the setting of obstructive uropathy Mild diverticulitis; asymptomatic MICHAEL in the setting of sepsis and obstructive uropathy; likely vasomotor nephropathy Obstructive uropathy with mild left hydroureteronephrosis with a 4 mm distal left ureteral kidney stone; stone passed Left flank pain due to above; resolved Anxiety/Depression; no suicide ideation/plan Overweight Received IV fluid To continue avoiding nephrotoxic agent upon discharge Renal stone sent for analysis To follow up with the Urology at the [facility] Counseled the patient on the importance of adopting healthy lifestyle with diet and exercise in order to lose weight No pain medications indicated for discharge Received three days of IV antibiotics; no oral antibiotics upon discharge To resume home antidepressant upon discharge Prescribed tamsulosin upon discharge To follow up with primary care provider at the [facility] within one week To follow up with discharge clinic next Saturday to get the results of renal stone analysis Late Entry. This medical document was created using an electronic medical record system with computerized dictation system. Although this document has been carefully reviewed, there might still be some phonetic and typographical errors. These areas are purely typographical due to imperfections of the software programs, and do not reflect any compromise in the patient's medical care. Condition at Discharge: Stable Final Diagnosis/Problems List Obstructive uropathy; renal stone passed Rest of diagnoses as above Discharge Disposition: Home Discharge Instruct/Medications Diet: Regular Activity: No Restrictions, As Tolerated Follow Up/Referral: To follow up with PCP at [facility] within one week; to follow up with discharge clinic next Saturday in order to get the results of renal stone analysis; to follow up with Urology at the [facility] within 2 to 4 weeks Medications: Tamsulosin; to continue home antidepressant/anxiolytic medication Scheduled Escitalopram Oxalate (Lexapro), 1 TAB PO DAILY, (Reported) Tamsulosin Hcl (Flomax), 0.4 MG PO QPM Discharge Statement: "Patient was advised to return to the ER or call 911 if any headaches, dizziness, shortness of breath, chest pain, abdominal pain, bleeding, fevers, or worsening of medical condition. Patient was counseled about treatment plan, medications, possible side effects, patientverbalized understanding. All questions were answered to the best of my ability. This discharge took greater then 30 minutes in planning, reviewing documentation, counseling the patient, and discussing with other team members." Date of Service: Oct 26, 2024 Billing Provider: WENDY BELLE MD Common Visit Codes: [id number] DISCH DAY >30min WENDY BELLE MD Oct 26, 2024 13:37
[2024-10-26 14:34] VITALS: BP 146/80; PULSE 61; RESP 16; TEMP 97.8; O2SAT 98
== END 2024-10-26 15:02 | disposition home or self-care (01) | DRG 871 ==
LOC: ER 05:19 → EDBD 05:19 → OVERFLOW 10:09 → WEST WING 18:31
PROVIDERS: ADMIT Internal Medicine; ATTEND Internal Medicine
DX: A41.9 Sepsis, unspecified organism (principal); N17.0 Acute kidney failure with tubular necrosis; K57.32 Diverticulitis of large intestine without perforation or abscess without bleeding; N13.6 Pyonephrosis; N20.2 Calculus of kidney with calculus of ureter; F41.9 Anxiety disorder, unspecified; E66.3 Overweight; F32.A Depression, unspecified; R65.20 Severe sepsis without septic shock; Z87.442 Personal history of urinary calculi; Z79.899 Other long term (current) drug therapy; Z68.24 Body mass index [BMI] 24.0-24.9, adult
CPT/HCPCS: 36415; 74176; 80048; 80053; 81001; 82360; 85025; 96361; 96374; 96375; G0378; J1885; J2405